=== PATIENT | female | born 1975 | race Caucasian/White ===

== ENCOUNTER 2017-04-22 07:31 | Day surgery (SDC) | payer BC ==
[2017-04-20 12:27] VITALS: BP 128/84
[2017-04-20 12:57] LABS: HEMATOCRIT 42.3 % (34.6-47.8); HEMOGLOBIN 14.1 g/dL (11.7-16.4); WHITE BLOOD COUNT 7.8 x10^3/uL (3.4-10)
[2017-04-20 13:09] LABS: ASPARTATE AMINO TRANSFERASE 10 U/L (15-37); BLOOD UREA NITROGEN 13 mg/dL (7-18)
[~2017-04-22] VITALS: Ht 167.6 cm; Wt 107.2 kg
[~2017-04-22 07:31] MED LIST: GLUC1CAP18 PO; MULT-658 PO
[2017-04-22] MEDS ORDERED: LACTATED RINGERS 1,000 ML IV SCH (08:14)
[2017-04-22 08:15] VITALS: BP 128/84
[2017-04-22] MEDS ORDERED: LIDOCAINE 1%, 2ML SQ PRN (08:30)
[2017-04-22] MEDS ORDERED: SUCCINYLCHOLINE 20 MG/ML, 10ML ONE (09:05)
[2017-04-22] MEDS ORDERED: ROCURONIUM 10 MG/ML,10ML ONE (09:05)
[2017-04-22] MEDS ORDERED: PROPOFOL 10 MG/ML, 20ML ONE (09:05)
[2017-04-22] MEDS ORDERED: MIDAZOLAM 1 MG/ML, 2ML ONE (09:10)
[2017-04-22] MEDS ORDERED: DEXAMETHASONE 4 MG/ML, 1ML ONE (09:11)
[2017-04-22] MEDS ORDERED: ONDANSETRON 2MG/ML, 2ML ONE (09:11)
[2017-04-22] MEDS ORDERED: FENTANYL PF 100 MCG/2ML ONE (09:11)
[2017-04-22] MEDS ORDERED: BUPIVACAINE/PF 0.25% ONE (09:14)
[2017-04-22] MEDS ORDERED: FLUORESCEIN SODIUM 500 MG/5 ML ONE (09:14)
[2017-04-22] MEDS ORDERED: HYDROmorphone 1 MG/ML, 1ML IV PRN (09:30)
[2017-04-22] MEDS ORDERED: FENTANYL PF 100 MCG/2ML IV PRN (09:30)
[2017-04-22] MEDS ORDERED: EPHEDRINE 50 MG/ML, 1ML IVPush PRN (09:30)
[2017-04-22] MEDS ORDERED: HYDROcodone/APAP 7.5-325MG/15ML UDC PO PRN (09:30)
[2017-04-22] MEDS ORDERED: ONDANSETRON 2MG/ML, 2ML IVPush PRN (09:30)
[2017-04-22] MEDS ORDERED: OXYcodone 5 MG/5 ML ORAL.SOL UDC PO PRN (09:30)
[2017-04-22] MEDS ORDERED: METOPROLOL 1 MG/ML, 5ML IV PRN (09:30)
[2017-04-22] MEDS ORDERED: LABETALOL 5MG/ML, 20ML IV PRN (09:30)
[2017-04-22] MEDS ORDERED: hydrALAzine 20 MG/ML, 1ML IV PRN (09:30)
[2017-04-22] MEDS ORDERED: ACETAMINOPHEN 325 MG TABLET PO PRN (09:30)
[2017-04-22] MEDS ORDERED: METOCLOPRAMIDE 5 MG/ML, 2ML IV PRN (09:30)
[2017-04-22] MEDS ORDERED: KETOROLAC 30 MG/1 ML IV PRN (09:30)
[2017-04-22] MEDS ORDERED: MIDAZOLAM 1 MG/ML, 2ML IV PRN (09:30)
[2017-04-22] MEDS ORDERED: PROMETHAZINE 25 MG/ML, 1ML IV PRN (09:30)
[2017-04-22] MEDS ORDERED: ALBUTEROL SULFATE 2.5 MG/3 ML NPPB PRN (09:30)
[2017-04-22] MEDS ORDERED: SODIUM CHLORIDE 0.9% PF 10ML ONE (10:29)
[2017-04-22] MEDS ORDERED: CEFAZOLIN 1,000 MG ONE ×2 (10:29)
[2017-04-22] MEDS ORDERED: BUPIVACAINE/PF 0.25% INFIL ONE (11:36)
[2017-04-22] MEDS: MEPERIDINE/PF 25MG/0.5ML IVPush PRN ×2 (11:52→12:12)
[2017-04-22] MEDS ORDERED: ACETAMINOPHEN 650 MG/20.3 ML UDC ONE (11:54)
[2017-04-22] MEDS ORDERED: OXYcodone 5 MG/5 ML ORAL.SOL UDC ONE (11:55)
[2017-04-22] MEDS ORDERED: MEPERIDINE/PF 50 MG/ML ONE (11:55)
[2017-04-22] MEDS ORDERED: KETOROLAC 30 MG/1 ML ONE (12:21)
[2017-04-22] MEDS ORDERED: KETOROLAC 30 MG/1 ML IVPush ONE (12:30)
[2017-04-22 16:10] LABS: HEMOGLOBIN 13.3 g/dL (11.7-16.4); WHITE BLOOD COUNT 14.8 x10^3/uL (3.4-10)
[2017-04-22 16:32] LABS: DIFF TOTAL CELLS COUNTED 100 CELL DIFF
[2017-04-22 16:33] LABS: VERIFY COUNTS? YES
== END 2017-04-22 17:35 ==
LOC: OUT 07:31
PROVIDERS: ATTEND Obstetrics & Gynecology
DX: N94.6 Dysmenorrhea, unspecified (principal); N92.0 Excessive and frequent menstruation with regular cycle; D25.9 Leiomyoma of uterus, unspecified; Z98.890 Other specified postprocedural states; E66.9 Obesity, unspecified; Z68.38 Body mass index [BMI] 38.0-38.9, adult
CPT/HCPCS: 36415; 58262; 80053; 84703; 85025; 86850; 86900; 88307; J0330; J0690; J1100; J1885; J2175; J2250; J2405; J2704; J3010; J3490; J7120

== ENCOUNTER 2018-12-10 09:07 | Outpatient (CLI) | payer BC | END 2018-12-10 23:59 | disposition home or self-care (01) | LOC: STAR 09:07 | PROVIDERS: ATTEND Otolaryngology | DX: Z02.9 Encounter for administrative examinations, unspecified (principal) ==

== ENCOUNTER 2018-12-15 06:41 | Day surgery (SDC) | payer BC ==
[~2018-12-15] VITALS: Ht 167.6 cm; Wt 101.6 kg
[~2018-12-15 06:41] MED LIST changes: +None at this Time
[2018-12-15] MEDS ORDERED: LIDOCAINE 1%-EPI 1:100K, 20ML ONE (07:01)
[2018-12-15] MEDS ORDERED: OXYMETAZOLINE NASAL SPRAY 0.05%, 15ML ONE (07:01)
[2018-12-15] MEDS ORDERED: LACTATED RINGERS 1,000 ML IV SCH (07:53)
[2018-12-15 08:12] VITALS: BP 116/77
[2018-12-15] MEDS ORDERED: FENTANYL PF 250 MCG/5ML ONE (08:29)
[2018-12-15] MEDS ORDERED: MIDAZOLAM 1 MG/ML, 2ML ONE (08:29)
[2018-12-15] MEDS ORDERED: MUPIROCIN OINT 2%, 22GM ONE (08:34)
[2018-12-15] MEDS ORDERED: DEXAMETHASONE 4 MG/ML, 1ML ONE (08:35)
[2018-12-15] MEDS ORDERED: NEOSTIGMINE 1 MG/ML, 10ML ONE (08:35)
[2018-12-15] MEDS ORDERED: ONDANSETRON 2MG/ML, 2ML ONE (08:35)
[2018-12-15] MEDS ORDERED: PROPOFOL 10 MG/ML, 20ML ONE (08:35)
[2018-12-15] MEDS ORDERED: ROCURONIUM 10MG/ML,5ML ONE (08:35)
[2018-12-15] MEDS ORDERED: GLYCOPYRROLATE 0.2MG/1ML, 5ML ONE (08:35)
[2018-12-15] MEDS ORDERED: CEFAZOLIN 1,000 MG ONE (08:35)
[2018-12-15] MEDS ORDERED: SCOPOLAMINE PATCH, 1.5MG PATCH.TD72 TD ONE (09:16)
[2018-12-15] MEDS ORDERED: PROMETHAZINE 25 MG/ML, 1ML IM PRN ×2 (09:30)
[2018-12-15] MEDS ORDERED: ACETAMINOPHEN 325 MG TABLET PO PRN (09:30)
[2018-12-15] MEDS ORDERED: HALOPERIDOL 5 MG/ML IV PRN (09:30)
[2018-12-15] MEDS ORDERED: ONDANSETRON ODT 8 MG PO PRN (09:30)
[2018-12-15] MEDS ORDERED: FENTANYL PF 100 MCG/2ML IV PRN (09:30)
[2018-12-15] MEDS ORDERED: MEPERIDINE/PF 25MG/0.5ML IVPush PRN (09:30)
[2018-12-15] MEDS ORDERED: PROMETHAZINE 25 MG SUPP PR PRN (09:30)
[2018-12-15] MEDS ORDERED: LABETALOL 5MG/ML, 20ML IV PRN (09:30)
[2018-12-15] MEDS ORDERED: HYDROmorphone 2 MG/ML, 1ML IVPush PRN (09:30)
[2018-12-15] MEDS ORDERED: hydrALAzine 20 MG/ML, 1ML IV PRN (09:30)
[2018-12-15] MEDS ORDERED: PROMETHAZINE 12.5 MG SUPP PR PRN (09:30)
[2018-12-15] MEDS ORDERED: PROMETHAZINE 25 MG/ML, 1ML IV PRN (09:30)
[2018-12-15] MEDS ORDERED: MORPHINE SULFATE 4 MG/ML, 1ML IVPush PRN (09:30)
[2018-12-15] MEDS ORDERED: OXYcodone 5 MG/5 ML ORAL.SOL UDC PO PRN (09:30)
[2018-12-15] MEDS ORDERED: ONDANSETRON 2MG/ML, 2ML IV PRN (09:30)
[2018-12-15] MEDS ORDERED: OXYcodone 5 MG/5 ML ORAL.SOL UDC ONE (10:50)
[2018-12-15] MEDS ORDERED: FENTANYL PF 100 MCG/2ML ONE (10:52)
== END 2018-12-15 13:10 | disposition home or self-care (01) ==
LOC: OUT 06:41
PROVIDERS: ATTEND Otolaryngology
DX: J32.4 Chronic pansinusitis (principal); J34.3 Hypertrophy of nasal turbinates
CPT/HCPCS: 30140; 31253; 31267; 31288; 88304; C1726; J0690; J1100; J2250; J2405; J2704; J2710; J3010; J3490; J7120; 88312